=== PATIENT | male | born 1995 | race Caucasian/White ===

== ENCOUNTER 2017-04-09 08:51 | Inpatient (IN) ==
[2017-04-09] MEDS ORDERED: PROPOFOL 200 MG/20 ML VIAL IV ONE (10:58)
[2017-04-09] MEDS ORDERED: MIDAZOLAM 10 MG/2 ML VIAL ONE (10:58)
[2017-04-09] MEDS ORDERED: SUCCINYLCHOLINE 200 MG/10 ML VIAL ONE (10:59)
[2017-04-09] MEDS ORDERED: PROPOFOL 1,000 MG/100 ML BOTTLE IV ONE (11:02)
[2017-04-09 11:59] LABS: ABG Base Excess -0.6 MMOL/L (-2.5-2.5); ABG HCO3 23.3 MMOL/L (20-26); ABG Oxygen Saturation 99.4 % (95-100); ABG PCO2 36.4 MM HG (35-48); ABG PH 7.424 (7.35-7.45); ABG PO2 392.6 MM HG (80-95); ABG TCO2 24.4 MMOL/L (23-27); Allen Test Positive; Pt O2 Delivery Device Ventilator
[2017-04-09] MEDS: PROPOFOL 1,000 MG/100 ML BOTTLE IV SCH ×2 (12:00→21:00)
[2017-04-09] MEDS ORDERED: MORPHINE 2 MG/1 ML SYRINGE IV PRN (12:07)
[2017-04-09] MEDS ORDERED: ONDANSETRON 4 MG/2 ML VIAL IV PRN (12:07)
[2017-04-09] MEDS ORDERED: ALBUTEROL 2.5 MG/3 ML NEB RESP TX PRN (12:11)
[2017-04-09 12:16] LABS: Apearance,Urine CLOUDY (Clear); Bilirubin,Urine Negative (Negative); Blood, Urine Negative (Negative); Glucose,Urine (UA) 50 mg/dL (Negative); Hyaline Casts,Urine 48 /LPF (0-3); Ketones,Urine 20 mg/dL (Negative); Mucus,Urine Moderate /LPF (Occasional); Nitrite,Urine Negative (Negative); Protein,Urine >=500 MG/DL; RBC,Urine 14 /HPF (0-4); Squamous Epithelial Cell,Urine Occasional /HPF (0-10); Urine Color Amber (Yellow); Urine Specific Gravity 1.046 (1.001-1.035); Urine Urobilinogen < 2.0 EU/DL (0.2-1.0); WBC,Urine 3 /HPF (0-6)
[2017-04-09] MEDS: ALBUTEROL/IPRATROPIUM 3 ML NEB RESP TX SCH ×2 (12:23→19:26)
[2017-04-09] MEDS ORDERED: SODIUM CHLORIDE 0.9% 1,000 ML IV SCH (12:30)
[2017-04-09] MEDS: PANTOPRAZOLE 40 MG VIAL IV SCH (13:40)
[2017-04-09] MEDS: methylPREDNISolone SOD SUC 125 MG/2 ML VIAL IV SCH ×2 (13:45→22:14)
[2017-04-09] MEDS: ENOXAPARIN 40 MG/0.4 ML SYRINGE SUBCUT SCH (13:57)
[2017-04-09] MEDS: SODIUM CHLORIDE 0.45% 1,000 ML IV SCH ×2 (14:03→22:49)
[2017-04-09] MEDS: PIPERACILLIN/TAZOBACTAM 3,375 MG in SODIUM CHLORIDE 0.9% 100 ML IV SCH ×2 (14:55→22:13)
[2017-04-09] MEDS ORDERED: SODIUM CHLORIDE 0.9% 1,000 ML IV ONE (22:02)
[2017-04-09] MEDS ORDERED: METOPROLOL TARTRATE 5 MG/5 ML VIAL IV PRN (22:20)
[2017-04-09] MEDS ORDERED: METOPROLOL TARTRATE 5 MG/5 ML VIAL IV ONE (22:25)
[2017-04-09] MEDS ORDERED: SODIUM CHLORIDE 0.45% 1,000 ML IV SCH (22:30)
[2017-04-09] MEDS ORDERED: SODIUM CHLORIDE 0.45% 500 ML IV ONE (22:31)
[2017-04-10] MEDS: ALBUTEROL/IPRATROPIUM 3 ML NEB RESP TX SCH ×4 (01:19→19:19)
[2017-04-10] MEDS: METOPROLOL TARTRATE 5 MG/5 ML VIAL IV PRN ×2 (02:17→14:04)
[2017-04-10] MEDS: PROPOFOL 1,000 MG/100 ML BOTTLE IV SCH ×4 (04:06→15:31)
[2017-04-10 04:26] LABS: ABG Base Excess -4.1 MMOL/L (-2.5-2.5); ABG HCO3 17.9 MMOL/L (20-26); ABG Oxygen Saturation 99.2 % (95-100); ABG PCO2 25.8 MM HG (35-48); ABG PH 7.458 (7.35-7.45); ABG PO2 272.8 MM HG (80-95); ABG TCO2 18.6 MMOL/L (23-27)
[2017-04-10 04:57] LABS: Basophils % 0.1 % (0.0-0.8); Hemoglobin 15.1 GM/DL (14.0-18.0); Immature Granulocytes % 1.3 %; Immature Granulocytes Absolute 0.09 #; Lymphocytes % 15.1 % (21.2-54.2); Mean Corpuscular HGB Conc 34.3 GM/DL (32-36); Mean Corpuscular Hemoglobin 33 PG (27-34); Mean Corpuscular Volume 94.6 FL (87-102); Mean Platelet Volume 13.4 FL (9.6-12.0); Monocytes # 0.6 10*3/uL (0.11-0.8); Monocytes % 8.7 % (1.7-12.7); NRBC # 0.02 10*3/uL; Neutrophils # 5.1 10*3/uL (1.4-7.4); Neutrophils % 74.8 % (38.7-73.9); Platelet Count 188 T/CUMM (130-400); Red Blood Count 4.65 MC/CUMM (3.8-5.5); Red Cell Distribution Width 13.9 % (9.3-17.3); White Blood Count 6.9 T/CUMM (4-12)
[2017-04-10] MEDS: methylPREDNISolone SOD SUC 125 MG/2 ML VIAL IV SCH ×2 (05:19→16:46)
[2017-04-10] MEDS: PIPERACILLIN/TAZOBACTAM 3,375 MG in SODIUM CHLORIDE 0.9% 100 ML IV SCH ×3 (05:19→21:31)
[2017-04-10 05:28] LABS: Albumin 3.7 G/DL (3.4-5.0); Bilirubin,Total 0.7 MG/DL (0.2-1.0); Calcium 8.4 MG/DL (8.5-10.1); Osmolality,Calculated 326.5 MOS/KG (273-304); Total Protein 6.9 G/DL (6.4-8.3)
[2017-04-10 05:29] LABS: Lactic Acid 1.8 MMOL/L (0.4-2.0)
[2017-04-10] MEDS ORDERED: POTASSIUM CHLORIDE RIDER 10 MEQ in PREMIX 1 EACH IV PRN (05:43)
[2017-04-10] MEDS: POTASSIUM CHLORIDE RIDER 10 MEQ in PREMIX 1 EACH IV PRN ×5 (06:08→10:50)
[2017-04-10] MEDS: SODIUM CHLORIDE 0.45% 1,000 ML IV SCH ×2 (07:01→09:45)
[2017-04-10] MEDS: ACETAMINOPHEN 325 MG/10.15 ML UDCUP PO PRN ×2 (10:45→16:43)
[2017-04-10] MEDS: DEXTROSE 5% 1,000 ML IV SCH ×3 (11:49→18:38)
[2017-04-10] MEDS: DEXTROSE 5% 250 ML IV SCH ×7 (11:51→13:38)
[2017-04-10] MEDS ORDERED: DEXTROSE 5% 250 ML IV SCH (12:30)
[2017-04-10] MEDS: PANTOPRAZOLE 40 MG VIAL IV SCH (13:00)
[2017-04-10] MEDS: ENOXAPARIN 40 MG/0.4 ML SYRINGE SUBCUT SCH (13:35)
[2017-04-10] MEDS: IBUPROFEN 100 MG/5 ML UDCUP PO PRN (15:13)
[2017-04-10] MEDS ORDERED: LORATADINE 10 MG TABLET PO PRN (15:31)
[2017-04-10 16:12] LABS: Bilirubin,Total 0.7 MG/DL (0.2-1.0); Calcium 6.5 MG/DL (8.5-10.1); Osmolality,Calculated 316.7 MOS/KG (273-304); Total Protein 5.9 G/DL (6.4-8.3)
[2017-04-10] MEDS: tiZANidine 4 MG TABLET PO SCH ×2 (18:18→20:39)
[2017-04-10] MEDS ORDERED: SODIUM CHLORIDE 0.45% 500 ML IV ONE (19:10)
[2017-04-10] MEDS ORDERED: NOREPINEPHRINE 4 MG/4 ML VIAL IV ONE (19:19)
[2017-04-10] MEDS: NOREPINEPHRINE 8 MG in SODIUM CHLORIDE 0.9% 242 ML IV SCH (19:26)
[2017-04-10 20:22] LABS: Albumin 2.6 G/DL (3.4-5.0); Bilirubin,Direct 0.21 MG/DL (0.0-0.20); Bilirubin,Indirect 0.5 MG/DL (0.0-1.0); Bilirubin,Total 0.7 MG/DL (0.2-1.0); Total Protein 5.2 G/DL (6.4-8.3)
[2017-04-10] MEDS: clonazePAM 0.5 MG TABLET PO SCH (20:55)
[2017-04-10] MEDS: BACLOFEN 20 MG TABLET PO SCH (20:56)
[2017-04-10] MEDS ORDERED: lamoTRIgine 100 MG TABLET PO SCH (21:00)
[2017-04-11] MEDS: ALBUTEROL/IPRATROPIUM 3 ML NEB RESP TX SCH ×3 (00:04→12:23)
[2017-04-11] MEDS: DEXTROSE 5% 1,000 ML IV SCH (02:30)
[2017-04-11 03:43] LABS: ABG HCO3 14.7 MMOL/L (20-26); ABG PCO2 24.3 MM HG (35-48); ABG PH 7.301 (7.35-7.45); ABG TCO2 10.5 MMOL/L (23-27); Allen Test Positive; Pt O2 Delivery Device Ventilator
[2017-04-11] MEDS: NOREPINEPHRINE 8 MG in SODIUM CHLORIDE 0.9% 242 ML IV SCH ×2 (04:00→11:52)
[2017-04-11] MEDS: PROPOFOL 1,000 MG/100 ML BOTTLE IV SCH ×2 (04:15→11:51)
[2017-04-11] MEDS: methylPREDNISolone SOD SUC 125 MG/2 ML VIAL IV SCH (05:44)
[2017-04-11] MEDS: PIPERACILLIN/TAZOBACTAM 3,375 MG in SODIUM CHLORIDE 0.9% 100 ML IV SCH ×2 (05:51→15:20)
[2017-04-11] MEDS ORDERED: DEXTROSE 50% 25 GM/50 ML VIAL IV PRN (08:02)
[2017-04-11] MEDS ORDERED: GLUCAGON 1 MG VIAL IM PRN (08:02)
[2017-04-11] MEDS ORDERED: MONTELUKAST 10 MG TABLET PO SCH (09:00)
[2017-04-11] MEDS ORDERED: SODIUM CHLORIDE 23.4% CONC INJ 38.5 MEQ in STERILE WATER INJ 1,000 ML IV SCH (09:00)
[2017-04-11] MEDS ORDERED: MONTELUKAST CHEW 5 MG TABLET PO SCH (09:00)
[2017-04-11] MEDS ORDERED: tiZANidine 4 MG TABLET PO SCH (09:00)
[2017-04-11] MEDS ORDERED: lamoTRIgine 100 MG TABLET PO SCH (09:00)
[2017-04-11] MEDS ORDERED: LACTOBACILLUS RHAMNOSUS GG CAPSULE PO SCH (09:00)
[2017-04-11 09:09] LABS: Basophils % 0.3 % (0.0-0.8); Hematocrit 44.2 VOL% (42.0-52.0); Hemoglobin 15.6 GM/DL (14.0-18.0); Immature Granulocytes % 0.7 %; Lymphocytes # 1.1 10*3/uL (1.4-4.0); Lymphocytes % 7.1 % (21.2-54.2); Mean Corpuscular HGB Conc 35.3 GM/DL (32-36); Mean Corpuscular Hemoglobin 32 PG (27-34); Mean Corpuscular Volume 91.9 FL (87-102); Mean Platelet Volume 13.8 FL (9.6-12.0); Monocytes % 6.5 % (1.7-12.7); NRBC # 0.15 10*3/uL; Neutrophils # 12.6 10*3/uL (1.4-7.4); Neutrophils % 85.4 % (38.7-73.9); Platelet Count 130 T/CUMM (130-400); Red Blood Count 4.81 MC/CUMM (3.8-5.5); Red Cell Distribution Width 12.7 % (9.3-17.3); White Blood Count 14.7 T/CUMM (4-12)
[2017-04-11 09:24] LABS: INR 1.2; Partial Thromboplastin Time 28.4 SECS (0-40)
[2017-04-11 09:54] LABS: Free T4 (Free Thyroxine) 0.78 NG/DL (0.76-1.46); Thyroid Stimulating Hormone 0.169 uIU/ml (0.358-3.74)
[2017-04-11 10:12] LABS: Albumin 3.1 G/DL (3.4-5.0); Bilirubin,Total 1.4 MG/DL (0.2-1.0); Osmolality,Calculated 286.9 MOS/KG (273-304); Total Protein 6.3 G/DL (6.4-8.3)
[2017-04-11] MEDS: clonazePAM 0.5 MG TABLET PO SCH (10:18)
[2017-04-11 10:21] LABS: Calcium 5.1 MG/DL (8.5-10.1)
[2017-04-11] MEDS: BACLOFEN 20 MG TABLET PO SCH ×2 (10:48→15:20)
[2017-04-11] MEDS: IBUPROFEN 100 MG/5 ML UDCUP PO PRN (11:22)
[2017-04-11] MEDS: PANTOPRAZOLE 40 MG VIAL IV SCH (11:56)
[2017-04-11] MEDS: ENOXAPARIN 40 MG/0.4 ML SYRINGE SUBCUT SCH (11:56)
[2017-04-11] MEDS ORDERED: INSULIN REGULAR 100 UNIT/ML SUBCUT SCH (12:00)
[2017-04-11] MEDS ORDERED: PHENYLEPHRINE DRIP 40 MG/250 ML PREMIX IV ONE (12:40)
[2017-04-11 13:09] LABS: Blood Urea Nitrogen 51 MG/DL (7-18); Glucose 342 MG/DL (74-106); Osmolality,Calculated 284.1 MOS/KG (273-304); Sodium 128 MMOL/L (136-145)
[2017-04-11 13:12] LABS: Calcium < 5.0 MG/DL (8.5-10.1); Potassium 6.4 MMOL/L (3.5-5.1)
[2017-04-11 14:19] VITALS: BP 101/63
[2017-04-11] MEDS ORDERED: methylPREDNISolone SOD SUC 40 MG/1 ML VIAL IV SCH (17:00)
[2017-04-13 14:06] LABS: Procalcitonin, S 3.1 ng/mL (<=0.15)
== END 2017-04-11 12:48 | disposition expired | DRG 871 ==
LOC: SUATTDRO 10:18 → N.CC 10:18
PROVIDERS: ADMIT Internal Medicine Nephrology; ATTEND Hospitalist